=== PATIENT | female | born 1975 | race African-American/Black ===

== ENCOUNTER 2017-01-31 01:34 | Emergency (ER) | payer OTHER ==
[~2017-01-31] VITALS: Ht 167.6 cm; Wt 73.0 kg
[2017-01-31 01:43] VITALS: Ht 167.6 cm; Wt 73.0 kg
[2017-01-31] MEDS ORDERED: IBUP800T25 PO (02:13)
[2017-01-31] MEDS ORDERED: HYDR-906 PO (02:13)
[2017-01-31] MEDS ORDERED: CYCL-319 PO (02:13)
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
[2017-01-31] MEDS ORDERED: HYDROCODONE/APAP (5/325) TAB PO ONE (02:30)
== END 2017-01-31 03:11 | disposition home or self-care (01) ==
LOC: FTE 01:34
DX: M25.511 Pain in right shoulder (principal); M25.512 Pain in left shoulder; M25.561 Pain in right knee; M25.562 Pain in left knee; M54.9 Dorsalgia, unspecified
CPT/HCPCS: Z7502; Z7610; 99284